=== PATIENT | female | born 1965 | race Caucasian/White ===

== ENCOUNTER 2016-06-02 17:33 | Emergency (ER) | payer SELFPAY ==
[~2016-06-02] VITALS: Ht 175.3 cm; Wt 76.7 kg
[2016-06-02 18:14] VITALS: BP 189/117
[2016-06-02] MEDS ORDERED: cloNIDine 0.2 mg/24hr 7DAY PATCH TD ONE (21:00)
== END 2016-06-02 21:02 | disposition left against medical advice (07) ==
LOC: ER 18:04
DX: M79.642 Pain in left hand (principal); M79.641 Pain in right hand; Z88.0 Allergy status to penicillin; Z88.6 Allergy status to analgesic agent
CPT/HCPCS: 73130

== ENCOUNTER 2024-04-28 11:00 | Inpatient (IN) | payer MEDICAID, OTHER ==
[~2024-04-28] VITALS: Ht 175.3 cm; Wt 77.4 kg
--- NOTE | 2024-04-28 11:17 | ED.PDOC ---
HPI (NEURO) HPI Comments 59 year old female presents to the ED with a chief complaint of LT sided facial numbness onset today (04/28/24) about 1 hour ago. Patient states she began experiencing Lt sided facial numbness, nausea, chest discomfort described as a pressure sensation, headache, dizziness, nausea. She checked her BP, noticed it was elevated and decided to come to ED. Upon ED arrival BP was 186/99. PMHx DM, HTN, Angina. Denies vomiting, diarrhea, abdominal pain, shortness of breath, fever, chills. No other symptoms or modifying factors present at this time. Chief Complaint: Face pain Time Seen by MD: 11:08 Reviewed Notes: Medications, Allergies Information Source: Patient Severity: Moderate Headache Severity: Moderate Timing: Hours Duration: Since onset Prehospital treatment: None Headache Quality: Sharp Headache Location: Generalized Numbness Location: (L) Sided, Facial Onset: At rest Circumstances: Spontaneous Symptoms: Numbness History of: DM, Hypertension Modifying factors: Nothing Associated Signs and Symptoms: Headache, Chest Pain, Numbness Past Medical History PAST MEDICAL HISTORY: Angina, DM, HTN Surgical History: Denies all surgeries CHANGE AGENT History: No Pertinent CHANGE AGENT History Family History Family History: Reviewed,noncontributory to illness, No family hx of Cancer, No family hx of DM, No family hx of Heart ameena, No family hx of HTN, No family hx ofKidney ameena, No family hx of Liver ameena, No family hx of Lung ameena, No family hx of Stroke Social History Smoker: Cigarettes Alcohol: Denies ETOH Use Drugs: Denies Drug Use Lives In: Home Constitutional: denies: chills, diaphoresis, fatigue, fever, malaise, sweats, weakness, others EENTM: denies: blurred vision, double vision, ear bleeding, ear discharge, ear drainage, ear pain, ear ringing, eye pain, eye redness, hearing loss, mouth pain, mouth swelling, nasal discharge, nose bleeding, nose congestion, nose pain, photophobia, tearing, throat pain, throat swelling, voice changes, others Respiratory: denies: cough, hemoptysis, orthopnea, SOB at rest, shortness of breath, SOB with excertion, stridor, wheezing, others Cardiovascular: reports: chest pain (pressure); denies: dizzy spells, diaphoresis, Dyspnea on exertion, edema, irregular heart beat, left arm pain, lightheadedness, palpitations, PND, syncope, others Gastrointestinal: reports: nausea; denies: abdomen distended, abdominal pain, blood streaked bowels, constipated, diarrhea, dysphagia, difficulty swallowing, hematemesis, melena, poor appetite, poor fluid intake, rectal bleeding, rectal pain, vomiting, others Genitourinary: denies: abnormal vagina bleeding, burning, dyspareunia, dysuria, flank pain, frequency, hematuria, incontinence, pain, , vagina discharge, urgency, others Neurological: reports: dizziness, numbness (LT sided facial); denies: fainting, headache, left sided numbness, left sided weakness, paresthesia, pre-existing deficit, right sided numbness, right sided weakness, seizure, speech problems, tingling, tremors, weakness, others Musculoskeletal: denies: back pain, gout, joint pain, joint swelling, muscle pain, muscle stiffness, neck pain, others Integumetry: denies: bruises, change in color, change in hair/nails, dryness, laceration, lesions, lumps, rash, wounds, others Allergic/Immunocompromised: denies: Difficulty Healing, Frequent Infections, Hives, Itching, others Hematologic/Lymphatic: denies: anemia, blood clots, easy bleeding, easy bruising, swollen glands, others Endocrine: denies: excessive hunger, excessive sweating, excessive thirst, excessive urination, flushing, intolerance to cold, intolerance to heat, unexplained weight gain, unexplained weight loss, others Psychiatric: denies: anxiety, bipolar disorder, depression, hopeless, panic disorder, schizophrenia, sleepless, suicidal, others All Other Systems: Reviewed and Negative Physical Exam General Appearance: Moderate Distress, Normal HEENT: Normal ENT Inspection, Pharynx Normal, TMs Normal Neck: Full Range of Motion, Non-Tender, Normal, Normal Inspection Respiratory: Chest Non-Tender, No Accessory Muscle Use, No Respiratory Distress, Other (Coarse breath sounds) Cardiovascular: No Edema, No JVD, No Murmur, No Gallop, Normal Peripheral Pulses, Regular Rate/Rhythm Breast Exam: Deferred Gastrointestinal: No Organomegaly, Non Tender, No Pulsatile Mass, Normal Bowel Sounds, Soft Genitalia: Deferred Pelvic: Deferred Rectal: Deferred Extremities: No calf tenderness, Normal capillary refill, Normal inspection, Normal range of motion, Non-tender, No pedal edema Musculoskeletal : Apperance: Normal Neurologic: Alert, alignment mechanic II-XII nml as Tested, No Motor Deficits, Normal Affect, Normal Mood, No Sensory Deficits Cerebellar Function: Normal Reflexes: Normal Skin: Dry, Normal Color, Warm Peripheral Pulses: 3+ Radial (R), 3+ Radial (L) Lymphatic: No Adenopathy Was a procedure done? Was a procedure done?: No Differential Diagnosis (SZ) Seizure: Psychogenic Seizure, Closed Head Injury, CVA/TIA X-Ray, Labs, Meds, VS Vital Signs Date Time Temp Pulse Resp B/P (MAP) Pulse Ox O2 Delivery O2 Flow Rate FiO2 04/28/24 14:10 184/100 04/28/24 13:12 59 11 97 Room Air* 0 21 04/28/24 12:00 58 04/28/24 11:59 58 17 139/85 (103) 97 04/28/24 11:26 60 16 98 Room Air* 0 21 04/28/24 11:24 60 16 154/90 (111) 98 04/28/24 11:13 61 04/28/24 11:10 98.0 65 18 191/103 (132) 99 98.0 Lab Test 04/28/24 13:05 04/28/24 11:37 04/28/24 11:05 Range/Units Urine Color Yellow Yellow Urine Clarity Cloudy H Clear Urine pH 6.0 5.0-9.0 Urine Specific [place] 1.005 1.001-1.035 Urine Protein Negative Negative Urine Ketones Negative Negative Urine Blood Negative Negative /uL Urine Nitrite 2+ H Negative Urine Bilirubin Negative Negative Urine Urobilinogen Normal Negative mg/dL Urine Leukocyte Esterase 3+ Negative /uL Urine RBC 1 0 - 4 /hpf Urine Microscopic WBC 104 H 0-5 /HPF Urine Squamous Epithelial Cells Few <5 /hpf Urine Bacteria Mod H None Seen /hpf Urine Glucose Normal Normal mg/dL White Blood Count 5.8 4.4-10.8 10^3/uL Red Blood Count 5.17 4.0-5.20 10^6/uL Hemoglobin 16.2 12.2-16.2 g/dL Hematocrit 48.7 H 36.0-46.0 % Mean Corpuscular Volume 94.2 80.0-100.0 fL Mean Corpuscular Hemoglobin 31.4 28.0-32.0 pg Mean Corpuscular Hemoglobin Concent 33.3 32.0-36.0 g/dL Red Cell Distribution Width 14.5 H 11.8-14.3 % Platelet Count 284 140-450 10^3/uL Mean Platelet Volume 6.8 L 6.9-10.8 fL Neutrophils (%) (Auto) 56.0 37.0-80.0 % Lymphocytes (%) (Auto) 29.6 10.0-50.0 % Monocytes (%) (Auto) 9.7 0.0-12.0 % Eosinophils (%) (Auto) 3.4 0.0-7.0 % Basophils (%) (Auto) 1.3 0.0-2.0 % Neutrophils # (Auto) 3.2 1.6-8.6 10 ^3/uL Lymphocytes # (Auto) 1.7 0.4-5.4 10 ^3/uL Monocytes # (Auto) 0.6 0-1.3 10 ^3/uL Eosinophils # (Auto) 0.2 0-0.8 10 ^3/uL Basophils # (Auto) 0.1 0-0.2 10 ^3/uL Nucleated Red Blood Cells 0.0 % Sodium Level 140 136-145 mmol/L Potassium Level 4.8 3.5-5.1 mmol/L Chloride Level 110 H 98-107 mmol/L Carbon Dioxide Level 27 20-31 mmol/L Anion Gap 3 L 5-15 Blood Urea Nitrogen 7 L 9-23 mg/dL Creatinine 0.80 0.550-1.02 mg/dL Glomerular Filtration Rate Calc 84 >90 mL/min BUN/Creatinine Ratio 8.8 L 10.0-20.0 Serum Glucose 93 74-106 mg/dL Calcium Level 9.6 8.7-10.4 mg/dL Troponin I High Sensitivity 5 </=34 ng/L POC Glucose 86 70-106 mg/dl Current Medications Medications (Trade) Dose Ordered Sig/Farzana Route Start Time Stop Time Status Last Admin Nitroglycerin (Ntrostat Sublingual) 0.4 mg ONCE ONCE SL 04/28/24 12:00 04/28/24 12:01 DC 04/28/24 14:10 Aspirin 325 mg ONCE ONCE PO 04/28/24 12:00 04/28/24 12:01 DC 04/28/24 12:19 Patient alert. Complaining of weakness. Vitals stable. Answering questions. Blood pressure elevated. Continues to smoke cigarettes. EKG reviewed does show chronic changes. Continues to have chest discomfort. Was given aspirin. Was given nitro. She is allergic to morphine. CT of the head reviewed does not show any acute changes. Possibly will need MRI. Explained to the patient. Continue cardiac monitoring. [address] [address] Ph: [phone] DIAGNOSTIC IMAGING Diagnostic Imaging Report : [id number] Signed PATIENT: DANIEL AJ ACCT: [id number] UNIT: [id number] : 1965 LOC: ER ROOM / BED: / AGE / SEX: 59 / F ADM STATUS: REG ER SERVICE 1106 ORDERING PHYSICIAN: SOLO JACOME MD PROCEDURE(s): CTH - STROKE CTH REASON: facial numbness ORDER NUMBER(s): [id number], ACCESSION NUMBER(s): [id number] CLINICAL INFORMATION: 59 years old, Female; facial numbness. TECHNIQUE: Axial imaging was obtained through the brain without contrast. Coronal and sagittal reformatted images were obtained, reviewed, and stored. Images were reviewed in brain and bone windows. All CT scans at this medical facility are performed using dose modulation techniques as appropriate to a performed exam including the following: Automated exposure control was utilized; adjustment of the MA and/or KV according to patient size; and use of iterative reconstruction technique. CTDIvol = 52.77 mGy DLP = 935.57 mGy-cm COMPARISON: None FINDINGS: There is no acute intracranial hemorrhage. No mass effect or midline shift. The ventricles and sulci are within normal limits in size for age. Basal cisterns are patent. The calvarium is unremarkable. Paranasal sinuses and mastoid air cells are clear. IMPRESSION: No CT evidence of acute intracranial abnormality. Critical findings Critical Result: Stroke Alert Findings discussed with , Dr. jacome by Dr. Grace by phone at 04/28/2024 01:37 PM CDT, and acknowledged receipt and understanding of the findings. .. ATED BY: DEWAYNE GRACE DO DICTATED DATE/TIME: 04/28/24 1138 SIGNED BY: DEWAYNE GRACE Trino DO SIGNED DATE/TIME: 04/28/24 1138 CC: [address] [address] Ph: [phone] DIAGNOSTIC IMAGING Diagnostic Imaging Report : [id number] Signed PATIENT: DANIEL AJ ACCT: [id number] UNIT: [id number] : 1965 LOC: ER ROOM / BED: / AGE / SEX: 59 / F ADM STATUS: REG ER SERVICE 1113 ORDERING PHYSICIAN: SOLO JACOME MD PROCEDURE(s): CXRP - CHEST PORTABLE REASON: sob ORDER NUMBER(s): [id number], ACCESSION NUMBER(s): [id number] CHEST RADIOGRAPH Indication: sob Technique: Single frontal view of the chest was obtained Comparison: None FINDINGS: Lines and Tubes: None Lungs: No focal consolidation. Pleura: No effusion. No pneumothorax. Cardiomediastinal contours: Unremarkable Bones: No acute osseous abnormality. IMPRESSION: No acute cardiopulmonary disease. ATED BY: YAYO BOWMAN MD DICTATED DATE/TIME: 04/28/24 115 SIGNED BY: YAYO BOWMAN MD SIGNED DATE/TIME: 04/28/24 1159 CC: Time of 1ST Reevaluation: 11:38 Reevaluation 1ST: Unchanged Patient Education/Counseling: Diagnosis, Treatment, Prognosis Family Education/Counseling: No Family Present Additional Information The following tests were ordered, and results were reviewed by me: CT HEAD CVA, TROP, CBC, XY CHEST, UA, BMP, EKG I reviewed and agreed with the following test results read by other providers: CT HEAD CVA, XY CHEST I discussed treatment and results with medical personnel and: patient Comprehensive systems review obtained and negative except for what is stated in the HPI. Departure 1 Departure Time of Disposition: 11:48 Impression: Primary Impression: TIA (transient ischemic attack) Additional Impressions: Hypertensive urgency Chest pain of unknown etiology Disposition: ADMITTED INPATIENT Admit to: Med Surg Condition: Guarded Critical Care Note Critical Care Time?: Yes (90 min-critical care time only) Critical care comment: Chest pain weakness continue to monitor Stability Stability form required: No Heart Score Heart Score: Heart Score Response (Comments) Value History Slightly Suspicious 0 EKG Normal 0 Age 45-64 1 Risk Factors >3 or Hx ASHD 2 Troponin Normal limit 0 Total 3 I personally scribed for SOLO JACOME MD ([email or web address]) on 04/28/24 at 11:17. Electronically submitted by Marie Bee ([email or web address]). I personally scribed for SOLO JACOME MD ([email or web address]) on 04/28/24 at 11:24. Electronically submitted by Marie Bee ([email or web address]). I personally scribed for SOLO JACOME MD ([email or web address]) on 04/28/24 at 14:20. Electronically submitted by Marie Bee ([email or web address]). SOLO JACOME MD Apr 28, 2024 11:17
--- NOTE | 2024-04-28 11:18 | ECG ---
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
[2024-04-28 11:26] VITALS: PULSE 60; RESP 16; O2SAT 98
--- NOTE | 2024-04-28 11:40 | DVH ---
CLINICAL INFORMATION: 59 years old, Female; facial numbness. TECHNIQUE: Axial imaging was obtained through the brain without contrast. Coronal and sagittal reform atted images were obtained, reviewed, and stored. Images were reviewed in brain and bone windows. Al l CT scans at this medical facility are performed using dose modulation techniques as appropriate to a performed exam including the following: Automated exposure control was utilized; adjustment of the MA and/or KV according to patient size; and use of iterative reconstruction technique. CTDIvol = 52.7 7 mGy DLP = 935.57 mGy-cm COMPARISON: None FINDINGS: There is no acute intracranial hemorrhage. No mass effect or midline shift. The ventricles and sulci are within normal limits in size for age. Basal cisterns are patent. The calvarium is unre markable. Paranasal sinuses and mastoid air cells are clear. IMPRESSION: No CT evidence of acute intracranial abnormality. Critical findings Critical Result: Stroke Alert Findings discussed with , Dr. jacome by Dr. Grace by phone at 04/28/2024 01:37 PM CDT, and tavon wledged receipt and understanding of the findings. ..
[2024-04-28 12:00] LABS: Basophils # (auto) 0.1 10 ^3/uL (0-0.2); Basophils % (auto) 1.3 % (0.0-2.0); Eosinophils # (auto) 0.2 10 ^3/uL (0-0.8); Eosinophils % (auto) 3.4 % (0.0-7.0); Hematocrit 48.7 % (36.0-46.0); Hemoglobin 16.2 g/dL (12.2-16.2); Lymphocytes # (auto) 1.7 10 ^3/uL (0.4-5.4); Lymphocytes % (auto) 29.6 % (10.0-50.0); Mean Corpuscular Hemoglobin 31.4 pg (28.0-32.0); Mean Corpuscular Hgb Conc. 33.3 g/dL (32.0-36.0); Mean Corpuscular Volume 94.2 fL (80.0-100.0); Monocytes # (auto) 0.6 10 ^3/uL (0-1.3); Monocytes % (auto) 9.7 % (0.0-12.0); Neutrophils # (auto) 3.2 10 ^3/uL (1.6-8.6); Platelet Count (auto) 284 10^3/uL (140-450); Red Blood Cells 5.17 10^6/uL (4.0-5.20); Red Cell Distribution Width 14.5 % (11.8-14.3); White Blood Cell 5.8 10^3/uL (4.4-10.8)
--- NOTE | 2024-04-28 12:02 | DVH ---
CHEST RADIOGRAPH Indication: sob Technique: Single frontal view of the chest was obtained Comparison: None FINDINGS: Lines and Tubes: None Lungs: No focal consolidation. Pleura: No effusion. No pneumothorax. Cardiomediastinal contours: Unremarkable Bones: No acute osseous abnormality. IMPRESSION: No acute cardiopulmonary disease.
[2024-04-28 12:05] LABS: Potassium 4.8 mmol/L (3.5-5.1); Sodium 140 mmol/L (136-145)
[2024-04-28 12:06] LABS: Anion Gap 3 (5-15); Calcium 9.6 mg/dL (8.7-10.4); Carbon Dioxide 27 mmol/L (20-31)
[2024-04-28 12:08] LABS: Chloride 110 mmol/L (98-107)
[2024-04-28 12:11] LABS: BUN/Creatinine Ratio 8.8 (10.0-20.0); Glucose 93 mg/dL (74-106)
[2024-04-28 12:14] LABS: Blood Urea Nitrogen 7 mg/dL (9-23)
[2024-04-28] MEDS: ASPirin 325 MG TAB PO ONE (12:19)
[2024-04-28] MEDS: NITROGLYCERIN 0.4 MG SL TAB SL ONE (12:19)
[2024-04-28 13:12] VITALS: PULSE 59; RESP 11; O2SAT 97
[2024-04-28 14:14] LABS: Urine Bacteria MOD /hpf (None Seen); Urine Blood Negative /uL (Negative); Urine Clarity Cloudy (Clear); Urine Color Yellow (Yellow); Urine Protein, UAD Negative (Negative); Urine Specific Gravity 1.005 (1.001-1.035); Urine Squamous Epithelial Cell FEW /hpf (<5); Urine Urobilinogen Normal (Negative); Urine WBC 104 /HPF (0-5)
[2024-04-28] MEDS ORDERED: DOCUSATE SOD 100 MG CAP PO PRN (14:45)
[2024-04-28] MEDS: amLODIPine BESYLATE 5 MG TAB PO ONE (14:53)
[2024-04-28] MEDS: ONDANSETRON HCL 4 MG/2 ML VIAL IV PRN (16:06)
--- NOTE | 2024-04-28 16:33 | DVHHP2 ---
History of Present Illness Reason for Visit: TIA (transient ischemic attack) History of Present Illness The patient is a 59-year-old female with past medical history of angina, diabetes mellitus, and hypertension who presented to [facility] ED with complaint of left-sided facial numbness. Patient reports she has been experiencing associated chest discomfort described of pressure sensation, headache, dizziness, nausea, getting worse that prompted this visit. Patient was seen and evaluated in the ED, laboratory data shows WBC 5.8, platelets 284, sodium 140, potassium 4.8, BUN 7, creatinine 0.80, GFR 84, glucose 93, troponin 5, blood pressure 191/103 trending down to 154/83, heart rate 60, temperature 98.0 F, O2 saturation 97% on room air. Urinalysis positive for urinary tract infection. Patient was started on IV antibiotic regimen Rocephin, please see medication orders section in the computer. On my assessment, patient denied chest pain, no headache, dizziness at this moment, no diaphoresis, no shortness of breath, no nausea, no vomiting, no fever, no chills. Patient was admitted for further evaluation and medical management. Past Medical History Angina, DM, HTN Past Surgical History Denies all surgeries Family History Reviewed, noncontributory to the management of this case. Past Social History The patient lives at home, smokes cigarettes, denies alcohol or illicit drugs abuse. Review of Systems Constitutional: No: Fever, Chills, Sweats, Weakness, Malaise, Other Eyes: No: Pain, Vision change, Conjunctivae inflammation, Eyelid inflammation, Other, Redness ENT: No: Ear pain, Ear discharge, Nose pain, Nose discharge, Nose congestion, Mouth pain, Mouth swelling, Throat pain, Throat swelling, Other Respiratory: No: Cough, Dry, Shortness of breath, SOB with excertion, Wheezing, Hemoptysis, Pleuritic Pain, Sputum, Wheezing, Other Cardiovascular: Chest Pain (Pressure); No: Palpitations, Orthopnea, Paroxysmal Noc. Dyspnea, Edema, Lt Headedness, Other Gastrointestinal: Nausea; No: Vomiting, Abdominal Pain, Diarrhea, Constipation, Melena, Hematochezia, Other Genitourinary: No Dysuria, No Frequency, No Incontinence, No Hematuria, No Retention, No Other Musculoskeletal: No: other, neck pain, shoulder pain, arm pain, back pain, hand pain, leg pain, foot pain Skin: No: Rash, Lesions, Jaundice, Bruising, Other Neurological: Numbness (Left-sided facial), Other (Dizziness); No: Weakness, Incoordination, Change in speech, Confusion, Seizures Allergies: Coded Allergies: Morphine (Verified Allergy, Unknown, 06/02/16) Penicillins (Verified Allergy, Unknown, 06/02/16) Medications Current Medications Medications Dose Ordered Sig/Farzana Route Start Time Stop Time Status Last Admin Dose Admin Aspirin 81 mg DAILY PO 04/29/24 10:00 Hydralazine HCl 10 mg Q6HP PRN IV 04/28/24 14:45 Amlodipine Besylate 5 mg DAILY PO 04/29/24 10:00 Sodium Chloride 10 ml Q8HR IV 04/28/24 22:00 Acetaminophen/ Hydrocodone Bitart 1 tab Q4HP PRN PO 04/28/24 14:45 Ondansetron HCl 4 mg Q4HP PRN IV 04/28/24 14:45 04/28/24 16:06 4 MG Docusate Sodium 100 mg BIDPRN PRN PO 04/28/24 14:45 Acetaminophen 650 mg Q6HP PRN PO 04/28/24 14:45 Ceftriaxone Sodium 50 ml @ 100 mls/hr DAILY@09 IV 04/29/24 09:00 Exam Vital Signs Vital Signs Date Time Temp Pulse Resp B/P (MAP) Pulse Ox O2 Delivery O2 Flow Rate FiO2 04/28/24 14:59 150/82 04/28/24 13:12 59 11 97 Room Air* 0 21 04/28/24 11:10 98.0 98.0 General Appearance: Alert, Oriented X3, Cooperative, No acute distress HEENT: Atraumatic, PERRLA, EOMI, Mucous membr. moist/pink Respiratory: Clear to auscultation, Normal air movement Cardiovascular: Regular rate, Normal S1, Normal S2, No murmurs Abdominal: Normal bowel sounds, Soft, No tenderness, No hepatospenomegaly, No masses Extremities: No clubbing, No cyanosis, No edema, Normal pulses, No tenderness/swelling Skin: No rashes, No breakdown, No significant lesion Neuro: Normal speech, Normal tone, Sensation intact, Cranial nerves 3-12 NL, Reflexes 2+, Other (Left-sided facial numbness.) Psych/Mental Status: Mental status NL, Mood NL Labs/Xrays Labs Test 04/28/24 13:05 04/28/24 11:37 04/28/24 11:05 Range/Units Urine Color Yellow Yellow Urine Clarity Cloudy H Clear Urine pH 6.0 5.0-9.0 Urine Specific [place] 1.005 1.001-1.035 Urine Protein Negative Negative Urine Ketones Negative Negative Urine Blood Negative Negative /uL Urine Nitrite 2+ H Negative Urine Bilirubin Negative Negative Urine Urobilinogen Normal Negative mg/dL Urine Leukocyte Esterase 3+ Negative /uL Urine RBC 1 0 - 4 /hpf Urine Microscopic WBC 104 H 0-5 /HPF Urine Squamous Epithelial Cells Few <5 /hpf Urine Bacteria Mod H None Seen /hpf Urine Glucose Normal Normal mg/dL White Blood Count 5.8 4.4-10.8 10^3/uL Red Blood Count 5.17 4.0-5.20 10^6/uL Hemoglobin 16.2 12.2-16.2 g/dL Hematocrit 48.7 H 36.0-46.0 % Mean Corpuscular Volume 94.2 80.0-100.0 fL Mean Corpuscular Hemoglobin 31.4 28.0-32.0 pg Mean Corpuscular Hemoglobin Concent 33.3 32.0-36.0 g/dL Red Cell Distribution Width 14.5 H 11.8-14.3 % Platelet Count 284 140-450 10^3/uL Mean Platelet Volume 6.8 L 6.9-10.8 fL Neutrophils (%) (Auto) 56.0 37.0-80.0 % Lymphocytes (%) (Auto) 29.6 10.0-50.0 % Monocytes (%) (Auto) 9.7 0.0-12.0 % Eosinophils (%) (Auto) 3.4 0.0-7.0 % Basophils (%) (Auto) 1.3 0.0-2.0 % Neutrophils # (Auto) 3.2 1.6-8.6 10 ^3/uL Lymphocytes # (Auto) 1.7 0.4-5.4 10 ^3/uL Monocytes # (Auto) 0.6 0-1.3 10 ^3/uL Eosinophils # (Auto) 0.2 0-0.8 10 ^3/uL Basophils # (Auto) 0.1 0-0.2 10 ^3/uL Nucleated Red Blood Cells 0.0 % Sodium Level 140 136-145 mmol/L Potassium Level 4.8 3.5-5.1 mmol/L Chloride Level 110 H 98-107 mmol/L Carbon Dioxide Level 27 20-31 mmol/L Anion Gap 3 L 5-15 Blood Urea Nitrogen 7 L 9-23 mg/dL Creatinine 0.80 0.550-1.02 mg/dL Glomerular Filtration Rate Calc 84 >90 mL/min BUN/Creatinine Ratio 8.8 L 10.0-20.0 Serum Glucose 93 74-106 mg/dL Calcium Level 9.6 8.7-10.4 mg/dL Troponin I High Sensitivity 5 </=34 ng/L POC Glucose 86 70-106 mg/dl PATIENT: DANIEL AJ ACCT: [id number] UNIT: [id number] : 1965 LOC: ER ROOM / BED: / AGE / SEX: 59 / F ADM STATUS: REG ER SERVICE 1109 ORDERING PHYSICIAN: SOLO BAEZ MD PROCEDURE(s): CTH - STROKE CTH REASON: facial numbness ORDER NUMBER(s): [id number], ACCESSION NUMBER(s): [id number] CLINICAL INFORMATION: 59 years old, Female; facial numbness. TECHNIQUE: Axial imaging was obtained through the brain without contrast. Coronal and sagittal reformatted images were obtained, reviewed, and stored. Images were reviewed in brain and bone windows. All CT scans at this [facility] are performed using dose modulation techniques as appropriate to a performed exam including the following: Automated exposure control was utilized; adjustment of the MA and/or KV according to patient size; and use of iterative reconstruction technique. CTDIvol = 52.77 mGy DLP = 935.57 mGy-cm COMPARISON: None FINDINGS: There is no acute intracranial hemorrhage. No mass effect or midline shift. The ventricles and sulci are within normal limits in size for age. Basal cisterns are patent. The calvarium is unremarkable. Paranasal sinuses and mastoid air cells are clear. IMPRESSION: No CT evidence of acute intracranial abnormality. Critical findings Critical Result: Stroke Alert ORDERING PHYSICIAN: SOLO BAEZ MD PROCEDURE(s): CXRP - CHEST PORTABLE REASON: sob ORDER NUMBER(s): [id number], ACCESSION NUMBER(s): [id number] CHEST RADIOGRAPH Indication: sob Technique: Single frontal view of the chest was obtained Comparison: None FINDINGS: Lines and Tubes: None Lungs: No focal consolidation. Pleura: No effusion. No pneumothorax. Cardiomediastinal contours: Unremarkable Bones: No acute osseous abnormality. IMPRESSION: No acute cardiopulmonary disease. Assessment/Plan Assessment/Plan TIA (transient ischemic attack) Hypertensive urgency Chest pain of unknown etiology Urinary tract infection Plan 1. Admit to telemetry unit 2. Breathing treatment 3. Pain control management 4. IV antibiotic management 5. Management of fluids and electrolytes 6. Consultation for Neurology 7. Diagnostic test head CT 8. DVT prophylaxis-on aspirin 9. Repeat labs CBC, CMP in a.m. 10. Home medication reviewed and reconciled 11. Continue with current medical management 12. Treatment plan discussed with patient and RN. Patient verbalized understanding. Plan discussed with: Patient, Other (RN) My Orders Orders - RONDA ALDRIDGE DNP Procedure Category Date Status Time Consistent DIET 04/28/24 Transmitted Carb(Ccho)Diabetes Dinner Aspirin Tablet PHA 04/29/24 In Process 10:00 Hydralazine Injection PHA 04/28/24 In Process (Apresoline Inject 14:45 Amlodipine Tablet PHA 04/29/24 In Process (Norvasc Tablet) 10:00 Allergies MARGARITO 04/28/24 In Process 14:32 Code Status CODE 04/28/24 Transmitted 14:32 Sodium Chloride Lock PHA 04/28/24 In Process (Saline Lock Ns) 22:00 Oxygen Per Hour RT 04/28/24 Transmitted 14:32 Hydrocodone-Acet PHA 04/28/24 In Process 5/325mg Tab ([place] 14:45 Ondansetron Hcl PHA 04/28/24 In Process (Zofran) 14:45 Docusate Sodium PHA 04/28/24 In Process Capsule (Colace 14:45 Complete Blood Count LAB 04/29/24 Verified 04:00 Comprehensive LAB 04/29/24 Verified Metabolic Panel 04:00 Condition: Serious MARGARITO 04/28/24 In Process 14:32 Acetaminophen Tablet PHA 04/28/24 In Process (Tylenol Tablet) 14:45 Bedrest With Bathroom MARGARITO 04/28/24 In Process Privileg 14:32 Sequential MARGARITO 04/28/24 In Process Compression Device Ceftriaxone 1gm/50ml PHA 04/29/24 In Process D5w (Rocephin) 09:00 Admit ADMIT 04/28/24 Verified 16:32 Nitroglycerin PHA 04/28/24 Verified Sublingual (Ntrostat 16:45 Stat Ekg For Chest [facility] 04/28/24 Verified Pain 16:32 Notify Md Of Changes [facility] 04/28/24 Verified From Base 16:32 Functional Support Analyst For [facility] 04/28/24 Verified 24 Hours 16:32 Emergency Dysrhythmia [facility] 04/28/24 Verified Protocol 16:32 Rhythm Strips Once [facility] 04/28/24 Verified Every Shift 16:32 Oxygen By Nasal RT 04/28/24 Verified Cannula 16:32 Problem List: (1) TIA (transient ischemic attack) (2) Hypertensive urgency (3) Chest pain of unknown etiology (4) Urinary tract infection Date of Service: Apr 28, 2024 Billing Provider: RONDA ALDRIDGE DNP Common Visit Codes: [id number] INP/OBS CARE (HIGH) RONDA ALDRIDGE DNP Apr 28, 2024 16:33
[2024-04-28] MEDS ORDERED: NITROGLYCERIN 0.4 MG SL TAB SL PRN (16:45)
[2024-04-28] MEDS: cefTRIAXone 1GM/50ML D5W 50 ML IV ONE (16:53)
[2024-04-28] MEDS: hydrALAZINE HCL 20 MG/ML VL IV PRN (19:29)
[2024-04-28 19:30] VITALS: PULSE 65; RESP 11; O2SAT 97
[2024-04-28 20:29] VITALS: BP 126/72; PULSE 79; RESP 16; TEMP 98; O2SAT 96
[2024-04-28 21:00] VITALS: BP 126/72; PULSE 79; RESP 15; TEMP 98; O2SAT 96
[2024-04-28] MEDS: MELATONIN 5 MG TAB PO SCH (21:58)
[2024-04-28] MEDS: SODIUM CHLOR 0.9% PF (SALINE LOCK) 10ML VIAL/SYR IV SCH (21:58)
[2024-04-28] MEDS: GABAPENTIN 300 MG CAP PO SCH (21:58)
[2024-04-29] VITALS (8 sets, daily range): BP systolic 116–153; BP diastolic 64–87; PULSE 53–71; RESP 15–19; TEMP 97.4–97.9; O2SAT 94–98
[2024-04-29] MEDS: HYDROcodone-ACET 5/325MG TAB PO PRN (00:31)
[2024-04-29 07:03] LABS: Alanine Aminotransferase 11 U/L (7-40); Alkaline Phosphatase 76 U/L (46-116); Anion Gap 3 (5-15); Aspartate Aminotransferase 16 U/L (13-40); BUN/Creatinine Ratio 15.6 (10.0-20.0); Basophils # (auto) 0 10 ^3/uL (0-0.2); Basophils % (auto) 0.8 % (0.0-2.0); Blood Urea Nitrogen 12 mg/dL (9-23); Calcium 9.6 mg/dL (8.7-10.4); Carbon Dioxide 28 mmol/L (20-31); Eosinophils # (auto) 0.2 10 ^3/uL (0-0.8); Eosinophils % (auto) 4.5 % (0.0-7.0); Glucose 98 mg/dL (74-106); Hematocrit 46.9 % (36.0-46.0); Hemoglobin 15.5 g/dL (12.2-16.2); Lymphocytes # (auto) 1.8 10 ^3/uL (0.4-5.4); Lymphocytes % (auto) 36.5 % (10.0-50.0); Mean Corpuscular Hemoglobin 31.1 pg (28.0-32.0); Mean Corpuscular Volume 94.2 fL (80.0-100.0); Monocytes # (auto) 0.6 10 ^3/uL (0-1.3); Monocytes % (auto) 11.2 % (0.0-12.0); Neutrophils # (auto) 2.4 10 ^3/uL (1.6-8.6); Nucleated Red Blood Cells % 0.2 %; Platelet Count (auto) 240 10^3/uL (140-450); Potassium 4.4 mmol/L (3.5-5.1); Red Blood Cells 4.97 10^6/uL (4.0-5.20); Red Cell Distribution Width 14.1 % (11.8-14.3); Sodium 139 mmol/L (136-145); Total Protein 6.4 g/dL (5.7-8.2)
[2024-04-29 07:06] LABS: Bilirubin, Total 0.2 mg/dL (0.2-1.0); Chloride 108 mmol/L (98-107)
[2024-04-29] MEDS: cefTRIAXone 1GM/50ML D5W 50 ML IV SCH (08:40)
[2024-04-29] MEDS: ASPirin 81 mg TAB PO SCH (08:41)
[2024-04-29] MEDS: amLODIPine BESYLATE 5 MG TAB PO SCH (08:43)
[2024-04-29 10:46] LABS: Triglycerides 124 mg/dL (< 150)
[2024-04-29 10:47] LABS: LDL Cholesterol 98 mg/dL (< 100); Magnesium 1.9 mg/dL (1.6-2.6)
[2024-04-29 10:48] LABS: Cholesterol 165 mg/dL (< 200); HDL Cholesterol 46 mg/dL (40-59)
[2024-04-29 10:49] LABS: INR 0.97 (0.9-1.15); Partial Thromboplastin Time 32.2 SEC (24.5-34.5); Prothrombin Time 10.3 sec (9.3-11.8)
[2024-04-29 10:55] LABS: Blood Alcohol < 3.0 mg/dL (<10)
[2024-04-29] MEDS: ACETAMINOPHEN 325 MG TAB PO PRN (11:11)
[2024-04-29] MEDS ORDERED: hydrALAZINE HCL 20 MG/ML VL IV PRN (11:15)
[2024-04-29 11:59] LABS: Folate (Folic Acid) 12.79 ng/mL (>5.38)
[2024-04-29] MEDS: CLOPIDOGREL BISULFATE 75 MG TAB PO ONE (12:42)
[2024-04-29] MEDS: METOPROLOL SUCCINATE XL 50 MG TAB PO ONE (12:43)
[2024-04-29] MEDS: CIPROFLOXACIN 400MG/200ML 200 ML IV ONE (12:43)
--- NOTE | 2024-04-29 14:04 | DVHPNRES ---
Progress Note Date Seen: Apr 29, 2024 Resident Creating Document: SLOANE PERES RESIDENT Medical Necessity Reason Pt with a Central, PICC or Fol: No Subjective Review of Systems Keyanna Daigle Is a 59-year-old with a PMH of angina, type 2 DM, HTN, asthma female presented to the ED with the chief complaints of chest heaviness which started on the day of admission. Patient reported she took her blood pressure medications at 8:00 a.m. yesterday and at 10 am started having chest heaviness associated with mild numbness, dizziness, malaise in the left cheek, visited ED. Patient reported chest heaviness is localized nonradiating, no aggravating and relieving factors. Patient denies fever, nausea, vomiting, palpitations, diaphoresis, dizziness and other associated symptoms. PMH: Type 2 DM, HTN, asthma, angina Surgical history: Denies Family history: Noncontributory Social history: Lives at home. Smokes less than 1 pack per day, occasional alcohol and marijuana abuse Allergies: Morphine, penicillin, environmental allergy Patient seen and examined at the bedside. Patient reported improvement in her symptoms, reported no new complaints. Objective vital signs Vital Sign Date Time Temp Pulse Resp B/P (MAP) Pulse Ox O2 Delivery O2 Flow Rate FiO2 04/29/24 12:43 60 153/78 04/29/24 11:11 97.7 04/29/24 09:00 19 95 04/29/24 08:00 Nasal Cannula* 3 32 Total Intake and Output 04/28/24 04/28/24 04/29/24 15:00 23:00 07:00 Intake Total 50 ml 500 ml Balance 50 ml 500 ml medications Current Medications Medications Dose Ordered Sig/Farzana Route Start Time Stop Time Status Last Admin Dose Admin Aspirin 81 mg DAILY PO 04/29/24 10:00 04/29/24 08:41 81 MG Amlodipine Besylate 5 mg DAILY PO 04/29/24 10:00 04/29/24 08:43 5 MG Sodium Chloride 10 ml Q8HR IV 04/28/24 22:00 04/29/24 06:07 10 ML Acetaminophen/ Hydrocodone Bitart 1 tab Q4HP PRN PO 04/28/24 14:45 04/29/24 08:43 1 TAB Ondansetron HCl 4 mg Q4HP PRN IV 04/28/24 14:45 04/28/24 16:06 4 MG Docusate Sodium 100 mg BIDPRN PRN PO 04/28/24 14:45 Acetaminophen 650 mg Q6HP PRN PO 04/28/24 14:45 04/29/24 11:11 650 MG Nitroglycerin 0.4 mg Q5MINP PRN SL 04/28/24 16:45 Gabapentin 300 mg TID PO 04/28/24 22:00 04/29/24 06:07 300 MG Melatonin 10 mg HS PO 04/28/24 22:00 04/28/24 21:58 10 MG Hydralazine HCl 10 mg Q6HP PRN IV 04/29/24 11:15 Metoprolol Succinate 25 mg DAILY PO 04/30/24 10:00 Clopidogrel Bisulfate 75 mg DAILY PO 04/30/24 10:00 Ciprofloxacin 200 ml @ 200 mls/hr Q12HR IV 04/29/24 22:00 Examination Pt is lying on bed General Appearance: Alert, Oriented X3, Cooperative, Not in acute distress HEENT: Atraumatic, Mucous membranes moist/pink Respiratory: Clear to auscultation, Normal air movement, No added sounds Cardiovascular: Regular rate, Normal S1, Normal S2, No murmurs Abdominal: Active bowel sounds, Soft, no distention, no tenderness Extremities: No edema, Normal pulses, No tenderness/swelling Skin: No Significant rash, except past surgical scars Neuro: Normal speech, sensorimotor deficits none Psych/Mental Status: Mental status NL, Mood NL Nurse was there as sharperone during examination laboratory and microbiology Laboratory Tests 04/29/24 06:04 Test 04/29/24 06:04 Range/Units Serum Glucose 98 74-106 mg/dL Microbiology Date/Time Source Procedure Growth Status 04/28/24 13:05 Voided Urine Urine Culture - Preliminary Resulted Labs and/or images reviewed: Labs reviewed by me, Image(s) reviewed by me Problem List/Assessment/Plan Problem List/Assessment/Plan # Chest pain likely from HTN # Hypertensive emergency # left facial numbness likely TIA versus hypertensive emergency # ? TIA - head CT showed no acute changes - started aspirin and clopidogrel - lipid profile within normal limit - monitor blood pressure - currently giving metoprolol and hydralazine # peripheral neuropathy - gabapentin # Acute complicated UTI/ cystitis - evident on urinalysis - ordered urine bacterial culture - currently giving ciprofloxacin Protonix not need Lovenox Cardiac diet Goals of care discussed with the patient for more than 29 minutes: Full code status Case discussed with Dr. Serna, patient and nurse Plan discussed with: Patient My Orders My Orders Orders - SLOANE PERES Procedure Category Date Status Time Ammonia LAB 04/29/24 In Process 08:12 Drug Screen LAB 04/29/24 Logged 08:12 Hydralazine Injection PHA 04/29/24 In Process (Apresoline Inject 11:15 Metoprolol Xl PHA 04/30/24 In Process Succinate (Toprol Xl) 10:00 Clopidogrel Bisulfate PHA 04/30/24 In Process (Plavix) 10:00 Ciprofloxacin PHA 04/29/24 In Process 400mg/200ml (Cipro Iv) 22:00 Enoxaparin Sodium PHA 04/29/24 Verified (Lovenox) 14:00 Enoxaparin Sodium PHA 04/30/24 Verified (Lovenox) 10:00 SLOANE PERES Apr 29, 2024 14:04
[2024-04-29] MEDS: ENOXAPARIN SOD 40 MG/0.4 ML SYRINGE SC ONE (15:00)
[2024-04-29 19:04] LABS: Opiate Scree,Urine Neg (NEGATIVE)
[2024-04-29 19:15] LABS: Amphetamine Screen, Urine Neg (NEGATIVE); Barbiturate Scree,Urine Neg (NEGATIVE); Benzodiazephine Screen, Urine Neg (NEGATIVE); Cannabinoid Screen, Urine Neg (NEGATIVE); Cocaine Screen, Urine Neg (NEGATIVE); Phencyclidine Screen, Urine Neg (NEGATIVE)
[2024-04-29] MEDS: CIPROFLOXACIN 400MG/200ML 200 ML IV SCH (21:24)
[2024-04-30 01:00] VITALS: BP 155/79; PULSE 59; RESP 18; TEMP 97.5; O2SAT 93
[2024-04-30 05:00] VITALS: BP 146/74; PULSE 65; RESP 20; TEMP 97.9; O2SAT 95
[2024-04-30 06:24] LABS: Basophils # (auto) 0 10 ^3/uL (0-0.2); Basophils % (auto) 0.6 % (0.0-2.0); Eosinophils # (auto) 0.2 10 ^3/uL (0-0.8); Eosinophils % (auto) 3.8 % (0.0-7.0); Hematocrit 46.5 % (36.0-46.0); Hemoglobin 15.4 g/dL (12.2-16.2); Lymphocytes # (auto) 1.7 10 ^3/uL (0.4-5.4); Lymphocytes % (auto) 39.1 % (10.0-50.0); Mean Corpuscular Hemoglobin 30.9 pg (28.0-32.0); Mean Corpuscular Hgb Conc. 33.1 g/dL (32.0-36.0); Mean Corpuscular Volume 93.4 fL (80.0-100.0); Monocytes # (auto) 0.5 10 ^3/uL (0-1.3); Neutrophils % (auto) 44.5 % (37.0-80.0); Nucleated Red Blood Cells % 0.2 %; Platelet Count (auto) 237 10^3/uL (140-450); Red Blood Cells 4.98 10^6/uL (4.0-5.20); Red Cell Distribution Width 13.9 % (11.8-14.3); White Blood Cell 4.5 10^3/uL (4.4-10.8)
[2024-04-30 06:44] LABS: Alanine Aminotransferase 11 U/L (7-40); Alkaline Phosphatase 79 U/L (46-116); Anion Gap 6 (5-15); BUN/Creatinine Ratio 16.4 (10.0-20.0); Blood Urea Nitrogen 12 mg/dL (9-23); Calcium 9.4 mg/dL (8.7-10.4); Carbon Dioxide 25 mmol/L (20-31); Glucose 99 mg/dL (74-106); Sodium 138 mmol/L (136-145); Total Protein 6.4 g/dL (5.7-8.2)
[2024-04-30 06:45] LABS: Albumin 4.1 g/dL (3.2-4.8)
[2024-04-30 06:46] LABS: Aspartate Aminotransferase 17 U/L (13-40); Bilirubin, Total 0.2 mg/dL (0.2-1.0); Chloride 107 mmol/L (98-107)
[2024-04-30 08:00] VITALS: PULSE 54; PULSE 70; RESP 21; O2SAT 98
[2024-04-30 08:31] VITALS: BP 159/84; PULSE 54; RESP 21; TEMP 98.6; O2SAT 98
[2024-04-30] MEDS: ENOXAPARIN SOD 40 MG/0.4 ML SYRINGE SC SCH (09:41)
[2024-04-30] MEDS: CLOPIDOGREL BISULFATE 75 MG TAB PO SCH (09:44)
[2024-04-30] MEDS: METOPROLOL SUCCINATE XL 50 MG TAB PO SCH (09:44)
--- NOTE | 2024-04-30 11:18 | DVH ---
EXAMINATION: MRI BRAIN HEAD WO CONTRAST INDICATION: CVA COMPARISON: CT head 04/28/2024 TECHNIQUE: Multiplanar, multisequence magnetic resonance imaging of the brain was performed without t he use of intravenous contrast. FINDINGS: There is no restricted diffusion. There are few scattered punctate hyperintense T2 foci in the suprat entorial white matter likely related to minimal chronic microvascular ischemic changes. There is no e vidence of hemorrhage, mass, mass effect or midline shift. There is no hydrocephalus or extra-axial f luid collection. The visualized intracranial vasculature demonstrates appropriate flow-voids. The sag ittal midline structures appear unremarkable. The craniocervical junction is within normal limits. Th e calvarium demonstrates normal marrow signal. The paranasal sinuses and mastoid air cells are clear. IMPRESSION: 1. There is no acute intracranial process. HS:Y
--- NOTE | 2024-04-30 11:48 | DVHDSRES ---
Discharge Summary Date of Admission Resident Creating Document: SLOANE PERES RESIDENT Apr 28, 2024 at 16:32 Date of Discharge: Apr 30, 2024 Admitting Diagnosis Chest heaviness Labs/Diagnostic Data: Laboratory Results Test 04/30/24 04:19 04/29/24 18:00 04/29/24 13:39 04/29/24 11:10 White Blood Count 4.5 10^3/uL (4.4-10.8) Red Blood Count 4.98 10^6/uL (4.0-5.20) Hemoglobin 15.4 g/dL (12.2-16.2) Hematocrit 46.5 % (36.0-46.0) Mean Corpuscular Volume 93.4 fL (80.0-100.0) Mean Corpuscular Hemoglobin 30.9 pg (28.0-32.0) Mean Corpuscular Hemoglobin Concent 33.1 g/dL (32.0-36.0) Red Cell Distribution Width 13.9 % (11.8-14.3) Platelet Count 237 10^3/uL (140-450) Mean Platelet Volume 7.3 fL (6.9-10.8) Neutrophils (%) (Auto) 44.5 % (37.0-80.0) Lymphocytes (%) (Auto) 39.1 % (10.0-50.0) Monocytes (%) (Auto) 12.0 % (0.0-12.0) Eosinophils (%) (Auto) 3.8 % (0.0-7.0) Basophils (%) (Auto) 0.6 % (0.0-2.0) Neutrophils # (Auto) 2.0 10 ^3/uL (1.6-8.6) Lymphocytes # (Auto) 1.7 10 ^3/uL (0.4-5.4) Monocytes # (Auto) 0.5 10 ^3/uL (0-1.3) Eosinophils # (Auto) 0.2 10 ^3/uL (0-0.8) Basophils # (Auto) 0 10 ^3/uL (0-0.2) Nucleated Red Blood Cells 0.2 % Sodium Level 138 mmol/L (136-145) Potassium Level 4.0 mmol/L (3.5-5.1) Chloride Level 107 mmol/L (98-107) Carbon Dioxide Level 25 mmol/L (20-31) Anion Gap 6 (5-15) Blood Urea Nitrogen 12 mg/dL (9-23) Creatinine 0.73 mg/dL (0.550-1.02) Glomerular Filtration Rate Calc 94 mL/min (>90) BUN/Creatinine Ratio 16.4 (10.0-20.0) Serum Glucose 99 mg/dL (74-106) Calcium Level 9.4 mg/dL (8.7-10.4) Total Bilirubin 0.2 mg/dL (0.2-1.0) Aspartate Amino Transferase (AST) 17 U/L (13-40) Alanine Aminotransferase (ALT) 11 U/L (7-40) Alkaline Phosphatase 79 U/L (46-116) Total Protein 6.4 g/dL (5.7-8.2) Albumin 4.1 g/dL (3.2-4.8) Urine Opiates Screen Neg (NEGATIVE) Urine Fentanyl Screen Neg (NEGATIVE) Urine Barbiturates Screen Neg (NEGATIVE) Urine Phencyclidine Screen Neg (NEGATIVE) Urine Amphetamines Screen Neg (NEGATIVE) Urine Benzodiazepines Screen Neg (NEGATIVE) Urine Cocaine Screen Neg (NEGATIVE) Urine Cannabinoids Screen Neg (NEGATIVE) Ammonia < 10 umol/L (11-32) B-Type Natriuretic Peptide 98.97 pg/mL (0-100) Vitamin B12 Level 455 pg/mL (211-911) Folic Acid 12.79 ng/mL (>5.38) Test 04/29/24 09:00 04/29/24 08:12 04/29/24 06:04 04/28/24 13:05 Prothrombin Time 10.3 sec (9.3-11.8) Prothrombin Time INR 0.97 (0.9-1.15) Activated Partial Thromboplast Time 32.2 SEC (24.5-34.5) Hemoglobin A1c 5.2 % A1C (<5.7) Magnesium Level 1.9 mg/dL (1.6-2.6) Triglycerides Level 124 mg/dL (< 150) Cholesterol Level 165 mg/dL (< 200) LDL Cholesterol 98 mg/dL (< 100) HDL Cholesterol 46 mg/dL (40-59) Thyroid Stimulating Hormone (TSH) 2.03 uIU/mL (0.55-4.78) Plasma/Serum Blood Alcohol < 3.0 mg/dL (<10) Urine Color Yellow (Yellow) Urine Clarity Cloudy (Clear) Urine pH 6.0 (5.0-9.0) Urine Specific [place] 1.005 (1.001-1.035) Urine Protein Negative (Negative) Urine Ketones Negative (Negative) Urine Blood Negative /uL (Negative) Urine Nitrite 2+ (Negative) Urine Bilirubin Negative (Negative) Urine Urobilinogen Normal mg/dL (Negative) Urine Leukocyte Esterase 3+ /uL (Negative) Urine RBC 1 /hpf (0 - 4) Urine Microscopic WBC 104 /HPF (0-5) Urine Squamous Epithelial Cells Few /hpf (<5) Urine Bacteria Mod /hpf (None Seen) Urine Glucose Normal mg/dL (Normal) Test 04/28/24 11:37 04/28/24 11:05 Troponin I High Sensitivity 5 ng/L (</=34) POC Glucose 86 mg/dl (70-106) Other Laboratory Tests 04/30/24 04:19 Brief Hx & Hospital Course: Keyanna Daigle Is a 59-year-old with a PMH of angina, type 2 DM, HTN, asthma female presented to the ED with the chief complaints of chest heaviness which started on the day of admission. Patient reported she took her blood pressure medications at 8:00 a.m. yesterday and at 10 am started having chest heaviness associated with mild numbness, dizziness, malaise in the left cheek, visited ED. Patient reported chest heaviness is localized nonradiating, no aggravating and relieving factors. Patient denies fever, nausea, vomiting, palpitations, diaphoresis, dizziness and other associated symptoms. EKG showed normal sinus rhythm and no ST changes and troponins were negative. Patient was started on aspirin and clopidogrel, ordered Head CT showed no CT evidence of acute intracranial abnormalities, ordered brain MRI which showed negative acute changes. patient was continuously monitor for hypertensive emergency, given amlodipine, metoprolol, hydralazine. due to complicated UTI patient was on ciprofloxacin, ordered urine cultures which showed E coli. Eventually patient condition was improved, hemodynamically stable and in condition to discharged home with optimal medical. Patient was advised about healthy lifestyle modifications including diet and exercise and to quit marijuana and to follow up with PCP for medication management. Pt is lying on bed General Appearance: Alert, Oriented X3, Cooperative, Not in acute distress HEENT: Atraumatic, Mucous membranes moist/pink Respiratory: Clear to auscultation, Normal air movement, No added sounds Cardiovascular: Regular rate, Normal S1, Normal S2, No murmurs Abdominal: Active bowel sounds, Soft, no distention, no tenderness Extremities: No edema, Normal pulses, No tenderness/swelling Skin: No Significant rash, except past surgical scars Neuro: Normal speech, sensorimotor deficits none Psych/Mental Status: Mental status NL, Mood NL Nurse was there as sharperone during examination Operations or Procedures Head CT showed no CT evidence of acute intracranial abnormalities, Brain MRI which showed negative acute changes. Condition at Discharge: Stable Final Diagnosis/Problems List # Chest pain likely from HTN # Hypertensive emergency # left facial numbness likely TIA versus hypertensive emergency # ? TIA # peripheral neuropathy # Acute complicated UTI/ cystitis Discharge Disposition: Home Discharge Instruct/Medications Diet: Consistent carbohydrate, Cardiac 2g Na,low cholest Activity: No Restrictions, As Tolerated Follow Up/Referral: PCP medication management Medications: As per EMR Discharge Statement: "Patient was advised to return to the ER or call 911 if any headaches, dizziness, shortness of breath, chest pain, abdominal pain, bleeding, fevers, or worsening of medical condition. Patient was counseled about treatment plan, medications, possible side effects, patientverbalized understanding. All questions were answered to the best of my ability. This discharge took greater then 30 minutes in planning, reviewing documentation, counseling the patient, and discussing with other team members." ASSESSMENT ASSESSMENT Assessment Hypertensive emergency SLOANE PERES RESIDENT Apr 30, 2024 11:48
[2024-04-30] MEDS ORDERED: ASPI-325 PO (14:40)
[2024-04-30] MEDS ORDERED: NITR100C6 PO (14:40)
[2024-04-30] MEDS ORDERED: CLOP75TA70 PO (14:40)
[2024-05-05 10:16] LABS: Hepatitis B Surface Antigen Negative (Negative)
[2024-05-05 10:33] LABS: Hepatitis C Antibody Negative (Negative)
== END 2024-04-30 14:47 | disposition home or self-care (01) | DRG 47 ==
LOC: ER 11:00 → OVERFLOW 16:32 → TELE-WESTW 20:30 → WEST WING 04-30 09:13
PROVIDERS: ADMIT Student in an Organized Health Care Education/Training Program; ATTEND Student in an Organized Health Care Education/Training Program
DX: G45.9 Transient cerebral ischemic attack, unspecified (principal); N30.90 Cystitis, unspecified without hematuria; E11.42 Type 2 diabetes mellitus with diabetic polyneuropathy; F17.210 Nicotine dependence, cigarettes, uncomplicated; I16.1 Hypertensive emergency; I10 Essential (primary) hypertension; Z88.0 Allergy status to penicillin; Z88.5 Allergy status to narcotic agent
CPT/HCPCS: 36415; 70450; 70551; 71045; 80048; 80053; 80061; 80307; 80320; 81001; 82140; 82607; 82746; 82962; 83036; 83735; 83880; 84443; 84484; 85025; 85610; 85730; 86803; 87086; 87088; 87186; 87340; 93005; 96365; 96375; 99291; G0378; J2405